=== PATIENT | female | born 1995 | race Caucasian/White ===

== ENCOUNTER 2023-01-02 15:27 | Emergency (ER) | payer OTHER, SELFPAY ==
[2023-01-02 15:33] VITALS: BP 115/78; PULSE 64; RESP 18; TEMP 36.2; O2SAT 100; BMI 22.3
--- NOTE | 2023-01-02 15:41 | ED_ITS ---
HPI - Extremity Injury (Lower) General Time Seen by Provider: 15:41 Date Seen: 01/02/23 Chief Complaint: Extremity Pain/Injury, Lower Stated Complaint: R ankle pain Time Seen by Provider: 01/02/23 15:28 Source: patient and RN notes reviewed Mode of arrival: ambulatory Limitations: no limitations History of Present Illness HPI Narrative: This 27-year-old female is coming in with severe ankle pain after injury. She was stepping down, lost balance and twisted her right ankle in the fall. It hurts both on the inside now outside of the ankle. No numbness tingling. She has ice on it. She also feels that the top outside of her left foot is little sore, maybe bruised. Nothing else was injured. Related Data Allergies Allergy/AdvReac Type Severity Reaction Status Date / Time No Known Drug Allergies Allergy Verified 01/02/23 15:33 Review of Systems 2 Narrative: As per HPI. PFSH PFSH Social History Smoking Status: Never smoker Do you use any of these nicotine containing products: None Second hand tobacco smoke exposure: No How often do you have a drink containing alcohol: 2-3 times a week How many standard drinks containing alcohol do you have on a typical day: 1 or 2 How often do you have six or more drinks on one occasion: Never AUDIT-C Alcohol total score: 3 Non-prescribed substance use: denies use service: No Exam Const: Vital Signs, click to edit/add: Vital Signs - 24 hr 01/02/23 15:33 Temperature 97.2 F L Pulse Rate [Pulse Oximeter] 64 Respiratory Rate 18 Blood Pressure [Ri ght Upper Arm] 115/78 Pulse Oximetry 100 Oxygen Delivery Me thod Room Air Tearful 27-year-old female lying on the bed in exam room 1. She has ice along the medial right ankle. On inspection I note no significant swelling, does not appear to be dislocated. Knee is nontender no injury, she is nontender until I get down to the ankle, has both medial and lateral malleolus tenderness, do not note a definitive step-off medially but question 1 over the fibula about 3 or 4 cm up from the distal end. Ankle mortise seems to be intact without any swelling. She has got good dorsalis pedis and posterior tibialis pulses. Range of motion of the ankle hurts her, this was done minimally due to her pain. She has no pain in the midfoot or over the metatarsals. She has normal warm skin, no open wounds, normal sensation of her toes on this foot. Left she was removed and ankle and foot inspected, no visible ecchymotic or swollen areas. She points to the pain over the mid lateral foot area, she has some mild palpable tenderness there without any step-off. Neurovascular is intact. She is not tender over the 5th metatarsal, ankle mortise intact, malleoli are nontender. Achilles tendon is intact on testing bilaterally. Documenting provider has reviewed patient's vital signs: yes Course Reevaluation(s) Time of Reevaluation #1: 16:39 Reevaluation #1: Reviewed with patient that there is a fibula fracture, anish Harris picture. Her left foot is fine on the imaging. She is getting some Zofran for nausea, have discussed pain management with her. Will give her initial 5 mg oral oxycodone. We are paging Ortho to look at these images, did review with her that I wondered if this might be surgical but will have Orthopedics weigh in on this. Time of Reevaluation #2: 17:50 Reevaluation #2: Patient had posterior splint with U support placed using Ortho [facility]. My partner Dr. Abarca did assist in placing this. Patient states the oxycodone is helping. She is not from this area, actually is from [place]. We will get her crutches, disc made of her images. I have spent a lot of time talking to her why this is a surgical correction that is needed. We have discussed the ankle mortise and and the need to restore the ankle joint. She is wondering if there is any way to not have surgery. She is going to have to follow up with Orthopedics but I do know from my experience here with the orthopedist I work with, this would be a surgical correction. Ten tablets of oxycodone and Zofran given from [facility], this was the smallest amount of oxycodone left in the machine. Consultations Consultation #1: Reviewed images with Tomás BUTLER from Orthopedics. He does agree that this is surgical as the ankle mortise is disrupted and widened. We will splint, have her follow up outpatient. Time: 16:41 Vital Signs Vital signs: Initial Vital Signs Temperature 97.2 F L 01/02/23 15:33 Temperature Source Temporal Artery Scan 01/02/23 15:33 Pulse Rate 64 01/02/23 15:33 Pulse Rhythm Regular 01/02/23 15:33 Respiratory Rate 18 01/02/23 15:33 Blood Pressure 115/78 01/02/23 15:33 Blood Pressure Mean 90 01/02/23 15:33 Blood Pressure Position Supine 01/02/23 15:33 Pulse Oximetry 100 01/02/23 15:33 Oxygen Delivery Method Room Air 01/02/23 15:33 Vital Signs Temperature 97.2 F L 01/02/23 15:33 Pulse Rate 64 01/02/23 15:33 Respiratory Rate 18 01/02/23 15:33 Blood Pressure 115/78 01/02/23 15:33 Pulse Oximetry 100 01/02/23 15:33 Oxygen Delivery Method Room Air 01/02/23 15:33 Temperature 97.2 F L 01/02/23 15:33 Pulse Rate 64 01/02/23 15:33 Respiratory Rate 18 01/02/23 15:33 Blood Pressure 115/78 01/02/23 15:33 Pulse Oximetry 100 01/02/23 15:33 Oxygen Delivery Method Room Air 01/02/23 15:33 MDM - Extremity Injury (Lower) Imaging Data XR right ankle: Attestation: I have reviewed the pertinent imaging results. My impression: I appreciate distal tibia fracture and what appears to be some widening of the ankle mortise. Radiologist's impression: Patient: HEMALATHA MENDES Facility:?[facility] Patient ID:?[id number] Site Patient ID:?[id number]. Site :?1995 Study:?XRay Extremity Right ANKLE 3 VIEWS-01/02/2023 4:04:30 PM Ordering Physician:?Rhonda Brown Final Report: INDICATION: Fall. Injury. FINDINGS: Three views of right ankle were obtained. There is a mild displaced oblique fracture in distal fibula. The mortise appears widened on one view with the talus slightly displaced laterally in relationship to the tibia. There is no other fracture seen. There is soft tissue swelling laterally. Dictated by Wolf Serra MD @ 01/02/2023 4:21:06 PM (Electronic Signature) XR left foot: Attestation: I have reviewed the pertinent imaging results. Radiologist's impression: Patient: HEMALATHA MENDES Facility:?[facility] Patient ID:?[id number] Site Patient ID:?[id number]. Site :?1995 Study:?XRay Extremity Left FOOT 3 VIEWS-01/02/2023 4:04:00 PM Ordering Physician:?Rhonda Brown Final Report: INDICATION: Injury. FINDINGS: Three views of the left foot were obtained. There is no acute fracture or dislocation seen in the foot. The joint space compartments are maintained. Dictated by Wolf Serra MD @ 01/02/2023 4:22:24 PM (Electronic Signature) Critical Care Time Critical Care Time Critical Care Time: No Discharge Plan Discharge Clinical Impression: Fracture of distal end of fibula Patient Disposition: Home, Self-Care Condition: Stable Instructions: Ankle Fracture (ED) Additional Instructions: Need to keep splint clean and dry. Ice over the top of the ankle and behind the knee to help decrease pain and swelling. Use crutches for nonweightbearing on this leg. You will need to follow up with an orthopedist once your home this next week, bring the disc that has the images of your ankle on this. I have written for oxycodone and Zofran follow-up prescription instructions from [facility]. Can baseline take a 1000 mg of Tylenol 3 times a day and supplement with ibuprofen per bottle directions as well. Typical ibuprofen dosing would be 600 mg 3 to 4 times a day with food. Activity Level: No Weight Bearing and Use Crutches Follow Up/Referrals: Provider,Not a Local [Primary Care Provider] - Stand Alone Forms: [employer] Info Instructions
--- NOTE | 2023-01-02 15:47 | CRLHL7_ITS ---
For Patients: As a result of the Cures Act, medical imaging exams and procedure reports are released immediately into your electronic medical record. You may view this report before your referring provider. If you have questions, please contact your health care provider. INDICATION: Fall. Injury. FINDINGS: Three views of right ankle were obtained. There is a mild displaced oblique fracture in distal fibula. The mortise appears widened on one view with the talus slightly displaced laterally in relationship to the tibia. There is no other fracture seen. There is soft tissue swelling laterally. Dictated by Wolf Serra MD @ 01/02/2023 4:21:06 PM (Electronically Signed)
--- NOTE | 2023-01-02 15:47 | CRLHL7_ITS ---
For Patients: As a result of the Cures Act, medical imaging exams and procedure reports are released immediately into your electronic medical record. You may view this report before your referring provider. If you have questions, please contact your health care provider. INDICATION: Injury. FINDINGS: Three views of the left foot were obtained. There is no acute fracture or dislocation seen in the foot. The joint space compartments are maintained. Dictated by Wolf Serra MD @ 01/02/2023 4:22:24 PM (Electronically Signed)
[2023-01-02] MEDS: ONDANSETRON ODT 4 MG TAB PO (16:38)
[2023-01-02] MEDS: OXYCODONE 5 MG TABLET PO (16:45)
[2023-01-02 18:00] VITALS: BP 120/76; PULSE 77; RESP 16; O2SAT 99
== END 2023-01-02 18:15 | disposition home or self-care (01) ==
PROVIDERS: Emergency Provider Family Medicine
DX: S82.831A Other fracture of upper and lower end of right fibula, initial encounter for closed fracture (principal); W01.0XXA Fall on same level from slipping, tripping and stumbling without subsequent striking against object, initial encounter
CPT/HCPCS: 29515; 73610; 73630; 99283; 99284; A9270